=== PATIENT | female | born 1965 | race Caucasian/White ===

== ENCOUNTER → 2017-03-19 | Outpatient (CLI) | payer OTHER ==
[~2017-03-19] VITALS: Ht 162.6 cm; Wt 101.6 kg
[~2017-03-19] MED LIST: AMOX TR-K CLV1 EAC4 PO; CALCIUM 500 MG1 EACH PO; CRESTOR10 MG PO; Celexa PO; ENDOCET 5-3251 EACH PO; FEOSOL325 MG PO; FOLIC ACID1 MG PO; HUMALOG100 UNIT/2 SC; INVOKANA300 MG PO; JANUMET 50/11 TABLET PO; KLONOPIN0.5 M1 PO; LANTUS 3 M100 UNITS1 SC; LIPITOR40 MG PO; LISINOPRIL2.5 MG PO; LISINOPRIL5 MG PO; MIRALAX255 GM PO; MOTRIN800 MG PO; NAPROSYN500 MG PO; NORCO 7.5/321 TABLET PO; ONGLYZA5 MG PO; PRENATAL TABLE1 EAC3 PO; PREVACID15 MG PO; PROTONIX40 MG PO; PROZAC20 MG PO; PROZAC40 MG PO; VITAMIN D31000 UNIT PO; VITAMIN D35000 UNIT PO; ZESTRIL2.5 MG PO; ZOFRAN ODT4 MG PO; ZOFRAN ODT8 MG PO; ZOFRAN4 MG PO; ZYRTEC10 M3 PO
[2017-03-19 15:46] LABS: POINT-OF-CARE METER ID UU13113694
[2017-03-19 16:43] LABS: POINT-OF-CARE METER ID UU13113819
== END | disposition home or self-care (01) ==
LOC: AMB 15:00
PROVIDERS: Specialist
PROC: 0DB98ZX Excision of Duodenum, Via Natural or Artificial Opening Endoscopic, Diagnostic (ICD-10-PCS; principal; 2017-03-19)
PROC: 0DB68ZX Excision of Stomach, Via Natural or Artificial Opening Endoscopic, Diagnostic (ICD-10-PCS; 2017-03-19)
DX: K31.7 Polyp of stomach and duodenum (principal); D50.9 Iron deficiency anemia, unspecified; K44.9 Diaphragmatic hernia without obstruction or gangrene; K21.9 Gastro-esophageal reflux disease without esophagitis; E11.9 Type 2 diabetes mellitus without complications; E78.5 Hyperlipidemia, unspecified; Z79.4 Long term (current) use of insulin; Z79.899 Other long term (current) drug therapy; E66.9 Obesity, unspecified; Z68.39 Body mass index [BMI] 39.0-39.9, adult; Z83.71 Family history of colonic polyps
CPT/HCPCS: 82948; 88305; 88342 TC; 93005; J2250; J3010

== ENCOUNTER → 2017-05-25 | Outpatient (CLI) | payer SELFPAY | END | disposition home or self-care (01) | LOC: RAD 08:50 | DX: K30 Functional dyspepsia (principal); R14.3 Flatulence; R10.12 Left upper quadrant pain | CPT/HCPCS: 74177 ==

== ENCOUNTER 2018-03-02 17:54 | Emergency (ER) | payer SELFPAY ==
[~2018-03-02] VITALS: Ht 162.6 cm; Wt 111.1 kg
[2018-03-02 20:02] VITALS: BP 147/71
== END 2018-03-02 20:04 | disposition home or self-care (01) ==
LOC: EME 17:54
PROC: 2W3KX1Z Immobilization of Left Finger using Splint (ICD-10-PCS; principal; 2018-03-02)
DX: S62.635A Displaced fracture of distal phalanx of left ring finger, initial encounter for closed fracture (principal); E11.9 Type 2 diabetes mellitus without complications; X50.1XXA Overexertion from prolonged static or awkward postures, initial encounter; Y93.83 Activity, rough housing and horseplay
CPT/HCPCS: 73140; 99281; 99283